=== PATIENT | male | born 2000 | race African-American/Black ===

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

== ENCOUNTER 2020-09-30 20:07 | Emergency (ER) | payer OTHER ==
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
--- NOTE | 2020-09-30 21:42 | XR ---
EXAMINATION TYPE: XR hand complete LT DATE OF EXAM: 09/30/2020 COMPARISON: NONE HISTORY: Pain and swelling TECHNIQUE: 3 views FINDINGS: Metacarpals are intact. I see no fracture nor dislocation. Joint spaces are normal. IMPRESSION: No fracture seen.
[2020-09-30] MEDS ORDERED: ACET/COD 300 MG/30 MG STARTER PACK 6 TAB BTL PO STA (22:00)
[2020-09-30 22:19] VITALS: BP 134/74; PULSE 72; RESP 18; TEMP 97.7
== END 2020-09-30 22:13 | disposition home or self-care (01) ==
LOC: EC 20:07
DX: S63.602A Unspecified sprain of left thumb, initial encounter (principal); Y04.0XXA Assault by unarmed brawl or fight, initial encounter
CPT/HCPCS: 99283

== ENCOUNTER 2021-08-13 14:22 | Emergency (ER) | payer OTHER ==
[2021-08-13 14:25] VITALS: BP 140/80; PULSE 82; RESP 18; TEMP 97.5
[2021-08-13] MEDS ORDERED: ACET/COD 300 MG/30 MG STARTER PACK 6 TAB BTL PO STA (14:42)
--- NOTE | 2021-08-13 14:42 | ED ---
ENT HPI - General Chief complaint: Dental/Oral Stated complaint: Dental pain Time Seen by Provider: 08/13/21 14:36 Source: patient, RN notes reviewed Mode of arrival: ambulatory Limitations: no limitations - History of Present Illness Initial comments: 21-year-old male presents emergency Department chief complaint left upper dental pain. Patient has not been to some while he's had increased pain last 2-3 days. Patient states is a broken tooth. No fevers or chills he states he is mild swelling. He has not taken any [id number]. NO KNOWN DRUG ALLERGIES patient offers no complaints. - Related Data Previous Rx's Medication Instructions Recorded Ibuprofen [Motrin] 600 mg PO Q8HR PRN #20 tab 09/30/20 Ibuprofen [Motrin] 600 mg PO Q8HR PRN #20 tab 08/13/21 Penicillin V Potassium [Pen Vee K] 500 mg PO QID #40 tablet 08/13/21 Allergies Allergy/AdvReac Type Severity Reaction Status Date / Time No Known Allergies Allergy Verified 08/13/21 14:24 Review of Systems ROS Statement: Those systems with pertinent positive or pertinent negative responses have been documented in the HPI. ROS Other: All systems not noted in ROS Statement are negative. Past Medical History Past Medical History: No Reported History History of Any Multi-Drug Resistant Organisms: None Reported Past Surgical History: No Surgical Hx Reported Past Psychological History: No Psychological Hx Reported Smoking Status: Never smoker Past Alcohol Use History: Rare Past Drug Use History: None Reported General Exam Limitations: no limitations General appearance: alert, in no apparent distress Head exam: Present: atraumatic, normocephalic, normal inspection Eye exam: Present: normal appearance, PERRL, EOMI. Absent: scleral icterus, conjunctival injection, periorbital swelling ENT exam: Present: mucous membranes moist, TM's normal bilaterally. Absent: normal oropharynx (Left upper mild swelling, and dental fracture noted, mild erythema no drainable abscess.) Neck exam: Present: normal inspection. Absent: tenderness, meningismus, lymphadenopathy Respiratory exam: Present: normal lung sounds bilaterally. Absent: respiratory distress, wheezes, rales, rhonchi, stridor Cardiovascular Exam: Present: regular rate, normal rhythm, normal heart sounds. Absent: systolic murmur, diastolic murmur, rubs, gallop, clicks Course Vital Signs 08/13/21 14:22 Temperature 97.5 F L Pulse Rate 82 Respiratory 18 Rate Blood Pressure 140/80 O2 Sat by Pulse 95 Oximetry Medical Decision Making - Medical Decision Making Patient has dental infection no drainable abscess was started on oral antibiotics patient is advised follow-up with dentist return for any worsening change in symptoms. Disposition Clinical Impression: Fracture of tooth, Toothache Disposition: HOME SELF-CARE Condition: Stable Instructions (If sedation given, give patient instructions): Dental Abscess (ED) Additional Instructions: Please return to the Emergency Department if symptoms worsen or any other concerns. Prescriptions: Ibuprofen [Motrin] 600 mg PO Q8HR PRN #20 tab PRN Reason: Pain Penicillin V Potassium [Pen Vee K] 500 mg PO QID #40 tablet Is patient prescribed a controlled substance at d/c from ED?: No Referrals: None,Stated [Primary Care Provider] - 1-2 days Time of Disposition: 14:41
== END 2021-08-13 14:56 | disposition home or self-care (01) ==
LOC: EC 14:22
DX: K03.81 Cracked tooth (principal)
CPT/HCPCS: 99282

== ENCOUNTER 2021-11-01 04:19 | Emergency (ER) | payer OTHER ==
[2021-11-01 04:23] VITALS: BP 137/89
[2021-11-01] MEDS ORDERED: IBUPROFEN 800 MG TAB PO STA (04:28)
[2021-11-01] MEDS ORDERED: ACETAMINOPHEN TAB 500 MG TAB PO STA (04:28)
--- NOTE | 2021-11-01 04:35 | ED ---
Chest Pain HPI - General Chief Complaint: Chest Pain Stated Complaint: Chest Pain Time Seen by Provider: 11/01/21 04:25 Source: patient, RN notes reviewed, old records reviewed Mode of arrival: wheelchair Limitations: no limitations - History of Present Illness Initial Comments: This is a 21-year-old male DF for evaluation. Patient comes in with cough congestion bodyaches pains chills chest pain nausea no vomiting no travel history no known sick contacts. Patient denies prior history of covert. Patient also having fevers and sore throat with no history of medical problems. Takes patient takes no medications MD Complaint: chest pain -: days(s) Onset: during rest Pain Location: substernal, left chest, right chest, epigastric Pain Radiation: none Severity: mild Severity scale (1-10): 0 Quality: tightness, dull Consistency: intermittent Improves With: nothing Worsens With: nothing Other Symptoms: cough Treatments Prior to Arrival: none - Related Data Previous Rx's Medication Instructions Recorded Ibuprofen [Motrin] 600 mg PO Q8HR PRN #20 tab 09/30/20 Ibuprofen [Motrin] 600 mg PO Q8HR PRN #20 tab 08/13/21 Penicillin V Potassium [Pen Vee K] 500 mg PO QID #40 tablet 08/13/21 Allergies Allergy/AdvReac Type Severity Reaction Status Date / Time No Known Allergies Allergy Verified 11/01/21 04:23 Review of Systems ROS Statement: Those systems with pertinent positive or pertinent negative responses have been documented in the HPI. ROS Other: All systems not noted in ROS Statement are negative. EKG Findings - EKG Comments: EKG Findings:: EKG sinus rhythm 94, MI 129 QRS 84 QTC 363 Past Medical History Past Medical History: No Reported History History of Any Multi-Drug Resistant Organisms: None Reported Past Surgical History: No Surgical Hx Reported Past Psychological History: No Psychological Hx Reported Smoking Status: Never smoker Past Alcohol Use History: Rare Past Drug Use History: None Reported General Exam Limitations: no limitations General appearance: alert, in no apparent distress Head exam: Present: atraumatic, normocephalic, normal inspection Eye exam: Present: normal appearance, PERRL, EOMI. Absent: scleral icterus, conjunctival injection, periorbital swelling ENT exam: Present: normal exam, mucous membranes moist Neck exam: Present: normal inspection. Absent: tenderness, meningismus, lymphadenopathy Respiratory exam: Present: normal lung sounds bilaterally. Absent: respiratory distress, wheezes, rales, rhonchi, stridor Cardiovascular Exam: Present: regular rate, normal rhythm, normal heart sounds. Absent: systolic murmur, diastolic murmur, rubs, gallop, clicks GI/Abdominal exam: Present: soft, normal bowel sounds. Absent: distended, tenderness, guarding, rebound, rigid Extremities exam: Present: normal inspection, full ROM, normal capillary refill. Absent: tenderness, pedal edema, joint swelling, calf tenderness Back exam: Present: normal inspection Neurological exam: Present: alert, oriented X3, CN II-XII intact Psychiatric exam: Present: normal affect, normal mood Skin exam: Present: warm, dry, intact, normal color. Absent: rash Course Vital Signs 11/01/21 11/01/21 04:19 05:09 Temperature 99.2 F 100.8 F H Pulse Rate 94 89 Respiratory 18 15 Rate Blood Pressure 137/89 O2 Sat by Pulse 99 Oximetry - Reevaluation(s) Reevaluation #1: 11/01/21 04:41 medical record is reviewed Reevaluation #2: 11/01/21 04:41 Patient feels improved here in the ER Reevaluation #3: 11/01/21 04:41 Patient informed results and questions answered Chest Pain MDM - MDM 21 male to the emergency department for evaluation. Patient will be discharged home, patient is negative for coronavirus and flu. Patient will be treated for pharyngitis and can be discharged home Disposition Clinical Impression: Atypical chest pain, Pharyngitis Disposition: HOME SELF-CARE Condition: Good Instructions (If sedation given, give patient instructions): Pharyngitis (ED) Is patient prescribed a controlled substance at d/c from ED?: No Referrals: None,Stated [Primary Care Provider] - 1-2 days
[2021-11-01] MEDS ORDERED: dexAMETHasone 2 MG TAB PO STA (05:08)
[2021-11-01] MEDS ORDERED: AMOXIC-POT CLAV 875-125MG 1 EACH TAB PO STA (05:08)
[2021-11-01 05:10] VITALS: PULSE 89; RESP 15; TEMP 100.8
[2021-11-01] MEDS ORDERED: AMOXIC-POT CLAV 875MG STARTER PACK 2 TAB BTL PO STA (05:10)
--- NOTE | 2021-11-01 05:52 | XR ---
EXAMINATION TYPE: XR chest 1V portable DATE OF EXAM: 11/01/2021 COMPARISON: Chest x-ray May 10, 2016 HISTORY: Chest pain. TECHNIQUE: Single AP portable frontal upright view of the chest is obtained. FINDINGS: Overlying EKG leads now seen on current study. There is no suspicious new focal air space o pacity, pleural effusion, or pneumothorax seen. The cardiac silhouette size remains within normal li mits. The osseous structures are intact. IMPRESSION: No acute process. No significant change from prior.
== END 2021-11-01 05:20 | disposition home or self-care (01) ==
LOC: EC 04:19
DX: J02.9 Acute pharyngitis, unspecified (principal); R07.89 Other chest pain
CPT/HCPCS: 71045; 87502; 87635; 93005; 99285

== ENCOUNTER 2022-07-24 02:58 | Emergency (ER) | payer OTHER ==
[2022-07-24 03:20] VITALS: BP 130/77; PULSE 70; RESP 18; TEMP 98.1
[2022-07-24] MEDS ORDERED: AMOXIC-POT CLAV 875-125MG 1 EACH TAB PO STA (03:42)
[2022-07-24] MEDS ORDERED: IBUPROFEN 800 MG TAB PO STA (03:42)
[2022-07-24] MEDS ORDERED: BENZOCAINE 20 % GEL 11.9 GM TUBE MM ONE (03:42)
--- NOTE | 2022-07-24 03:44 | ED ---
ENT HPI - General Chief complaint: Dental/Oral Stated complaint: tooth ache Time Seen by Provider: 07/24/22 03:36 Source: patient Mode of arrival: ambulatory - History of Present Illness Initial comments: Patient is a 22-year-old male who presents to the emergency department with a chief complaint of toothache. Patient states he broke his left upper molar a few months ago. He has had increased pain for the past 3 days. He does not have a dentist. He denies fever, chills, nausea, vomiting, trouble breathing. - Related Data Previous Rx's Medication Instructions Recorded Ibuprofen [Motrin] 600 mg PO Q8HR PRN #20 tab 09/30/20 Ibuprofen [Motrin] 600 mg PO Q8HR PRN #20 tab 08/13/21 Penicillin V Potassium [Pen Vee K] 500 mg PO QID #40 tablet 08/13/21 Amoxic-Pot Clav 875-125Mg 1 tab PO BID #20 tab 07/24/22 [Augmentin 875-125] Ibuprofen [Motrin] 800 mg PO Q8HR PRN #30 tab 07/24/22 Allergies Allergy/AdvReac Type Severity Reaction Status Date / Time No Known Allergies Allergy Verified 07/24/22 03:20 Review of Systems ROS Statement: Those systems with pertinent positive or pertinent negative responses have been documented in the HPI. ROS Other: All systems not noted in ROS Statement are negative. Past Medical History Past Medical History: No Reported History History of Any Multi-Drug Resistant Organisms: None Reported Past Surgical History: No Surgical Hx Reported Past Psychological History: No Psychological Hx Reported Smoking Status: Never smoker Past Alcohol Use History: Rare Past Drug Use History: None Reported General Exam General appearance: alert, in no apparent distress Head exam: Present: atraumatic, normocephalic, normal inspection ENT exam: Absent: normal oropharynx (Left upper molar is fractured with decay. No drainable abscess) Neck exam: Present: normal inspection. Absent: lymphadenopathy Respiratory exam: Present: normal lung sounds bilaterally. Absent: respiratory distress, wheezes, rales, rhonchi, stridor Cardiovascular Exam: Present: regular rate, normal rhythm, normal heart sounds. Absent: systolic murmur, diastolic murmur, rubs, gallop, clicks Neurological exam: Present: alert, oriented X3, CN II-XII intact Psychiatric exam: Present: normal affect, normal mood Skin exam: Present: warm, dry, intact, normal color. Absent: rash Course Vital Signs 07/24/22 07/24/22 03:15 04:30 Temperature 98.1 F 98.1 F Pulse Rate 70 70 Respiratory 18 18 Rate Blood Pressure 130/77 130/77 O2 Sat by Pulse 97 97 Oximetry Medical Decision Making - Medical Decision Making Was pt. sent in by a medical professional or institution ([facility] Robles, [employer], urgent care, hospital, or longterm...) When possible be specific @ -[No] Did you speak to anyone other than the patient for history (EMS, parent, family, police, friend...)? What history was obtained from this source @ -[No] Did you review nursing and triage notes (agree or disagree)? Why? @ -[I reviewed and agree with nursing and triage notes] Were old charts reviewed (outside hosp., previous admission, EMS record, old EKG, old radiological studies, urgent care reports/EKG's, longterm records)? Report findings @ -[No old charts were reviewed] Differential Diagnosis (chest pain, altered mental status, abdominal pain women, abdominal pain men, vaginal bleeding, weakness, fever, dyspnea, syncope, headache, dizziness, GI bleed, back pain, seizure, CVA, palpatations, mental health)? @ -Dental infection, dental abscess, fractured tooth- this list us not all- inclusive EKG interpreted by me (3pts min.). @ -[As above] X-rays interpreted by me (1pt min.). @ -[None done] CT interpreted by me (1pt min.). @ -[None done] U/S interpreted by me (1pt. min.). @ -[None done] What testing was considered but not performed or refused? (CT, X-rays, U/S, labs)? Why? @ -[None] What meds were considered but not given or refused? Why? @ -[None] Did you discuss the management of the patient with other professionals (professionals i.e. J[facility]NIOR Robles, [employer], lab, RT, psych nurse, mental health social worker, planting material remover, teacher, aircraft electronics technical officer, child welfare caseworker)? Give summary @ -[No] Was smoking cessation discussed for >3mins.? @ -[No] Was critical care preformed (if so, how long)? @ -[No] Were there social determinants of health that impacted care today? How? (Homelessness, low income, unemployed, alcoholism, drug addiction, transportation, low edu. Level, literacy, decrease access to med. care, snf, rehab)? @ -[No] Was there de-escalation of care discussed even if they declined (Discuss DNR or withdrawal of care, Hospice)? DNR status @ -[No] What co-morbidities impacted this encounter? (DM, HTN, Smoking, COPD, CAD, Cancer, CVA, ARF, Chemo, Hep., AIDS, mental health diagnosis, sleep apnea, morbid obesity)? @ -[None] Was patient admitted / discharged? Hospital course, mention meds given and route, prescriptions, significant lab abnormalities, going to OR and other pertinent info. @Patient presenting with dental infection. No fluctuance or drainable abscess. No systemic symptoms. Patient will be treated with antibiotics. He is urged to establish care with a dentist. Undiagnosed new problem with uncertain prognosis? @ -[No] Drug Therapy requiring intensive monitoring for toxicity (Heparin, Nitro, Insulin, Cardizem)? @ -[No] Were any procedures done? @ -[No] Diagnosis/symptom? @ -[default] Acute, or Chronic, or Acute on Chronic? @ -[default] Uncomplicated (without systemic symptoms) or Complicated (systemic symptoms)? @ -[default] Side effects of treatment? @ -[No] Exacerbation, Progression, or Severe Exacerbation? @ -[No] Poses a threat to life or bodily function? How? (Chest pain, USA, ID, pneumonia, PE, COPD, DKA, ARF, appy, cholecystitis, CVA, Diverticulitis, Homicidal, Suicidal, threat to staff... and all critical care pts) @ -[No] Dr. Lloyd is my attending Disposition Clinical Impression: Pain, dental Disposition: HOME SELF-CARE Condition: Good Instructions (If sedation given, give patient instructions): Dental Abscess (ED), Toothache (ED) Additional Instructions: Take medication as directed. It is important to establish care with a dentist. Return for emergency department experience new, concerning, or worsening symptoms. Prescriptions: Amoxic-Pot Clav 875-125Mg [Augmentin 875-125] 1 tab PO BID #20 tab Ibuprofen [Motrin] 800 mg PO Q8HR PRN #30 tab PRN Reason: Pain Is patient prescribed a controlled substance at d/c from ED?: No Referrals: None,Stated [Primary Care Provider] - 1-2 days
== END 2022-07-24 04:30 | disposition home or self-care (01) ==
LOC: EC 02:58
DX: K02.9 Dental caries, unspecified (principal)
CPT/HCPCS: 99283